=== PATIENT | male | born 1970 | race African-American/Black ===

== ENCOUNTER 2023-09-11 04:49 | Emergency (ER) | payer SELFPAY ==
[~2023-09-11] VITALS: Ht 188 cm; Wt 95.0 kg
[2023-09-11 04:57] VITALS: O2SAT 98
[2023-09-11] MEDS ORDERED: IBUPROFEN 400MG TABLET PO ONE (07:30)
[2023-09-11] MEDS ORDERED: IBUP-2028 MT (08:57)
[2023-09-11] MEDS: NEOMYCIN/BACITRACIN/POLYMYXIN OINT 14GM TOP SCH (10:22)
[2023-09-11] MEDS: IBUPROFEN 400MG TABLET PO NR (10:25)
[2023-09-11 10:34] VITALS: BP 128/69; PULSE 78; RESP 16; TEMP 98.4
== END 2023-09-11 10:52 | disposition home or self-care (01) ==
LOC: ER 04:49
DX: M25.562 Pain in left knee (principal); M25.561 Pain in right knee
CPT/HCPCS: 73560; 99283